=== PATIENT | male | born 1990 | race Caucasian/White ===

== ENCOUNTER 2016-10-21 11:18 | Emergency (ER) | payer OTHER ==
--- NOTE | 2016-10-26 07:15 | ER ---
ADMIT: 10/21/2016 RM/LOC: ER [facility] MR#: [id number] [facility] [address] [place], [place] [id number] MAURICE LONG [address] [place] [address] Emergency Room Report SEX: M AGE: 26 : 1990 DATE: 10/21/2016 Maurice is a 26-year-old male, who was brought in from work by [employer]. He apparently had an argument at work, he had taken some ephedra and caffeine pill and so prior to coming in here, he did develop an anxiety attack. REVIEW OF SYSTEMS: Positive for anxiety and depression with a history of PTSD, bipolar disorder. PHYSICAL EXAMINATION: VITAL SIGNS: Blood pressure 146/75, heart rate is 68, respirations 14, temp is 97.9, and O2 sats 99%. GENERAL: Mildly anxious. Keeps his eyes closed. When I walked in the room, he got startled, he jumped but continued with his eyes closed to give me information. NEUROLOGIC: Oriented x4. Mood and affect depressed and flat affect. Sensory intact. RESPIRATORY: No distress. ABDOMEN: Nontender. Rest of physical examination within normal limits. EKG done shows a rate 58, bradycardic. UDS negative for anything. CMP; potassium 3.6. CBC, WBC normal 7.4 with a platelet count of 227, hemoglobin is 15.1, and hematocrit is 42.7. The patient was discharged. DIAGNOSES: 1. Anxiety reaction. 2. Bipolar disorder. Dr. Spears consulted, advised to follow up with [facility]. IV fluids were done and he was discharged, a friend to take him home. MARK Gonzales / Blake Spears MD / timo JOB #: [id number] CC: Blake Spears MD, Attending Physician UNKNOWN, Family Physician
== END 2016-10-21 14:30 | disposition home or self-care (01) ==
LOC: ER 11:18
DX: F41.1 Generalized anxiety disorder (principal); F31.9 Bipolar disorder, unspecified; F43.10 Post-traumatic stress disorder, unspecified